=== PATIENT | male | born 1965 | race Caucasian/White ===

== ENCOUNTER 2018-05-17 09:46 | Emergency (ER) | payer BC ==
[2018-05-17 10:23] VITALS: BP 141/79
[2018-05-17] MEDS ORDERED: Lidocaine 1%* 5 ML VIAL INJ ONE (11:11)
--- NOTE | 2018-05-17 11:28 | RAD ---
INDICATION: Crush injury to the distal right middle finger COMPARISON: None. TECHNIQUE: 3 views of the right middle finger were obtained. FINDINGS: Overlying the radial aspect of the mid diaphysis of the right middle finger distal phalanx there is a punctate density seen on the AP view. There is no bony donor site. The bones are normal alignment. Joint spaces appear maintained. Involving the distal radial aspect of the right middle finger distal tuft is a medullary lucency which could be a nondisplaced fracture. IMPRESSION: LIKELY NONDISPLACED FRACTURE INVOLVING THE DISTAL RADIAL ASPECT OF THE RIGHT MIDDLE FINGER DISTAL TUFT. A PUNCTATE DENSITY COULD BE A FOREIGN BODY. PLEASE CORRESPOND TO PHYSICAL EXAMINATION.
--- NOTE | 2018-05-17 11:47 | UC ---
Skin Complaint HPI - HPI Summary HPI Summary: pt presents with c/o right middle finger laceration, swelling and pain after getting finger caught in folding ladder. - History of Current Complaint Chief Complaint: UCLaceration Time Seen by Provider: 05/17/18 10:36 Stated Complaint: RIGHT MIDDLE FINGER LACERATION Hx Obtained From: Patient Onset/Duration: Sudden Onset, Lasting Minutes, Still Present Skin Exposure Onset/Duration: Minutes Ago Timing: Constant Onset Severity: Moderate Current Severity: Moderate Pain Intensity: 0 Location: Discrete - right middle finger Character: Swelling, Pain Aggravating Factor(s): Touch Alleviating Factor(s): Nothing Associated Signs & Symptoms: Positive: Tenderness Related History: Trauma - Allergy/Home Medications Allergies/Adverse Reactions: Allergies Allergy/AdvReac Type Severity Reaction Status Date / Time Pertussis Vaccines Allergy See Comment Verified 05/17/18 10:18 Home Medications: Home Medications Carbamazepine [Tegretol Xr] 200 mg PO TID 05/17/18 [History Confirmed 05/17/18] Fexofenadine (NF) [Audrey 180 (NF)] 180 mg PO DAILY 05/17/18 [History Confirmed 05/17/18] Lisinopril [Zestril 5 MG-] 5 mg PO DAILY 05/17/18 [History Confirmed 05/17/18] Simvastatin [Zocor] 20 mg PO DAILY 05/17/18 [History Confirmed 05/17/18] Review of Systems Constitutional: Negative Skin: Other - laceration, subungal hematoma Eyes: Negative ENT: Negative Respiratory: Negative Cardiovascular: Negative Gastrointestinal: Negative Genitourinary: Negative Motor: Decreased ROM - c/o pain wiht ROM, but full ROM intact Neurovascular: Negative Musculoskeletal: Arthralgia, Edema - distal right middle finger, Myalgia Neurological: Negative, Other - c/o throbbing pain, distal right middle finger Psychological: Negative Is Patient Immunocompromised?: No All Other Systems Reviewed And Are Negative: Yes PMH/Surg Hx/FS Hx/Imm Hx Previously Healthy: Yes - Surgical History Surgical History: Yes Surgery Procedure, Year, and Place: brain surgery - Family History Known Family History: Positive: Cardiac Disease - Social History Occupation: Employed Full-time Lives: With Family Alcohol Use: None Substance Use Type: None Smoking Status (MU): Never Smoked Tobacco Have You Smoked in the Last Year: No - Immunization History Most Recent Tetanus Shot: 4 years ago- Vaccination Up to Date: Yes Physical Exam Triage Information Reviewed: Yes Appearance: Pain Distress Vital Signs: Initial Vital Signs Temp 98.2 F 05/17/18 10:18 Pulse 77 05/17/18 10:18 Resp 16 05/17/18 10:18 BP 141/79 05/17/18 10:18 Pulse Ox 97 05/17/18 10:18 Vital Signs Reviewed: Yes Eye Exam: Normal ENT: Positive: Hearing grossly normal Dental Exam: Normal Neck exam: Normal Respiratory: Positive: No respiratory distress Musculoskeletal: Positive: Edema @ - distal right middle finger, Other: - subungal heamtoma right middle finger Neurological Exam: Normal Psychological Exam: Normal Skin Exam: Other - laceartion right middle finger Laceration Repair - Laceration Repair 1 Description: Irregular Laceration Size After Repair: Length (cm) - 1.5, Width (mm) - 5, Depth (mm) - 5 Modified For Repair: No Type Injection: Digital Anesthesia Used: 1.0% Lido Irrigation With Pressure Irrigation Device: Yes Closure Material: Sutures - 3 sutures placed to approximate laceration, pt has nondisplaced fracture of tuft. trephination of right middle finger done as well for subungal hematoma Closure Method: Single Layer Suture Of: Skin Suture Type: Prolene - 4-0 Diagnostics - Radiology No standard instances Radiology Interpretation Completed By: Radiologist - IMPRESSION: LIKELY NONDISPLACED FRACTURE INVOLVING THE DISTAL RADIAL ASPECT OF THE RIGHT MIDDLE FINGER DISTAL TUFT. A PUNCTATE DENSITY COULD BE A FOREIGN BODY. PLEASE CORRESPOND TO PHYSICAL EXAMINATION. Course/Dx - Course Course Of Treatment: I spoke with Dr. Barrett and discussed the suture placement as well as antibiotic usage. Pt was referred to both [facility]. [facility] and [facility] per pt 's request. - Differential Diagnoses - Skin Complaint Differential Diagnoses: Foreign Body - Diagnoses Provider Diagnoses: right middle finger laceration. right middle finger open fracture. right middle firnger subungal hematoma Discharge - Sign-Out/Discharge Documenting (check all that apply): Patient Departure All imaging exams completed and their final reports reviewed: Yes - Discharge Plan Condition: Stable Disposition: HOME Prescriptions: Cephalexin CAP* [Keflex 500 CAP*] 500 mg PO Q6H #40 cap Patient Education Materials: Care For Your Stitches (DC), Laceration (ED), Finger Fracture (ED) Forms: *Work Release Referrals: Caprice Sanchez PA [Primary Care Provider] - If Needed Johnny Case MD [Medical Doctor] - 1 Day Sondra Barrett MD [Medical Doctor] - 1 Day - Billing Disposition and Condition Condition: STABLE Disposition: Home
== END 2018-05-17 12:07 | disposition home or self-care (01) ==
LOC: UCCORT 09:46
DX: S61.212A Laceration without foreign body of right middle finger without damage to nail, initial encounter (principal); W23.0XXA Caught, crushed, jammed, or pinched between moving objects, initial encounter; Y92.9 Unspecified place or not applicable
CPT/HCPCS: 73140; 99212; G0463